=== PATIENT | female | born 1980 | race Caucasian/White ===

== ENCOUNTER 2016-09-13 09:05 | Inpatient (IN) | payer MEDICARE, MEDICAID ==
[~2016-09-13] VITALS: Ht 154.9 cm; Wt 52.8 kg
[2016-09-13] VITALS (15 sets, daily range): BP systolic 98–141; RESP 15–20; TEMP 96.6–97.8; Ht 154.9 cm; Wt 52.8 kg
[2016-09-13] MEDS ORDERED: SODIUM CHLORIDE 0.9% 1,000 ML ONE ×3 (09:30→13:18)
[2016-09-13] MEDS ORDERED: humuLIN REG INSULIN ONE (09:30)
[2016-09-13] MEDS ORDERED: ONDANSETRON 4 MG VIAL ONE (09:48)
[2016-09-13] MEDS ORDERED: DEXTROSE 50% SYRINGE 50 ML IV PRN ×2 (11:00→12:15)
[2016-09-13] MEDS ORDERED: INSULIN DRIP 1 UNIT/ML 100 ML IV SCH ×2 (11:00→12:15)
[2016-09-13] MEDS ORDERED: DIAZEPAM 5 MG TAB PO PRN (12:15)
[2016-09-13] MEDS ORDERED: SODIUM CHLORIDE 0.45% 1,000 ML IV SCH (12:15)
[2016-09-13] MEDS ORDERED: SOD BICARB 8.4% SYR 50 ML IV PRN (12:15)
[2016-09-13] MEDS ORDERED: ONDANSETRON 4 MG VIAL IV PUSH PRN (13:50)
[2016-09-13] MEDS ORDERED: METOCLOPRAMIDE 10 MG/2 ML VIAL IV PUSH PRN (13:50)
[2016-09-13] MEDS ORDERED: SOD BICARB 8.4% SYR 50 ML IV ONE (13:55)
[2016-09-13] MEDS: FAMOTIDINE 20 MG TAB PO SCH ×2 (15:43→23:00)
[2016-09-13] MEDS: DEXTROSE 5% SALINE 0.45% 1,000 ML IV SCH ×2 (15:50→23:46)
[2016-09-13] MEDS: MUPIROCIN 2% CR 15 GM TOPICAL SCH (23:00)
[2016-09-14] VITALS (19 sets, daily range): BP systolic 102–158; RESP 12–21; TEMP 96.8–98.2
[2016-09-14] MEDS: DEXTROSE 5% SALINE 0.45% 1,000 ML IV SCH (06:47)
[2016-09-14] MEDS ORDERED: POTASSIUM CHLORIDE PREMIX 10 MEQ in PART FILL PIGGYBACK 1 EA IV SCH (07:15)
[2016-09-14] MEDS ORDERED: D5-1/2-NS W/KCL 20MEQ/L 1,000 ML IV SCH (07:15)
[2016-09-14] MEDS ORDERED: KCL CR 10 MEQ TAB PO ONE (08:00)
[2016-09-14] MEDS ORDERED: DEXTROSE 50% SYRINGE 50 ML IV PRN (08:35)
[2016-09-14] MEDS ORDERED: GLUCAGON 1 MG VIAL IM PRN (08:35)
[2016-09-14] MEDS: FAMOTIDINE 20 MG TAB PO SCH ×2 (08:42→21:29)
[2016-09-14] MEDS: ENOXAPARIN 30 MG/0.3 ML SYR SUBQ SCH (08:43)
[2016-09-14] MEDS: MUPIROCIN 2% CR 15 GM TOPICAL SCH ×2 (08:43→21:31)
[2016-09-14] MEDS: LEVEMIR INSULIN SUBQ SCH ×2 (08:47→21:31)
[2016-09-14] MEDS: SODIUM CHLOR 0.45% W/KCL 20MEQ 1,000 ML IV SCH ×2 (10:22→19:46)
[2016-09-14] MEDS ORDERED: MISSING DOSE XX ONE (15:35)
[2016-09-14] MEDS: KCL CR 10 MEQ TAB PO SCH ×2 (16:47→21:29)
[2016-09-15 00:38] VITALS: BP_SYST 138; RESP 18; TEMP 97.9
[2016-09-15 03:19] VITALS: BP_SYST 140; RESP 18; TEMP 97.1
[2016-09-15] MEDS: SODIUM CHLOR 0.45% W/KCL 20MEQ 1,000 ML IV SCH (05:33)
[2016-09-15] MEDS: KCL CR 10 MEQ TAB PO SCH ×2 (08:02→16:01)
[2016-09-15] MEDS: FAMOTIDINE 20 MG TAB PO SCH (08:02)
[2016-09-15] MEDS: LEVEMIR INSULIN SUBQ SCH (08:02)
[2016-09-15] MEDS: ENOXAPARIN 30 MG/0.3 ML SYR SUBQ SCH (08:04)
[2016-09-15] MEDS: MUPIROCIN 2% CR 15 GM TOPICAL SCH (08:05)
[2016-09-15 08:12] VITALS: BP_SYST 140; RESP 18; TEMP 98.6
[2016-09-15 11:54] VITALS: BP_SYST 112; RESP 18; TEMP 97.7
[2016-09-15] MEDS ORDERED: CALC CARB 500 MG CHEWTAB PO PRN (13:10)
[2016-09-15 14:29] VITALS: BP_SYST 112; RESP 18; TEMP 97.7
== END 2016-09-15 16:41 | disposition home or self-care (01) | DRG 638 ==
LOC: ENRESERVDT → ENRESERVTM → ER 10:00 → EMR 12:12 → CCU 14:25 → 3NT 09-14 15:31
PROVIDERS: ADMIT Internal Medicine; ATTEND Internal Medicine
DX: E10.10 Type 1 diabetes mellitus with ketoacidosis without coma (principal); L03.311 Cellulitis of abdominal wall; N17.9 Acute kidney failure, unspecified; E87.5 Hyperkalemia; Z91.19 Patient's noncompliance with other medical treatment and regimen; F41.9 Anxiety disorder, unspecified; F79 Unspecified intellectual disabilities
CPT/HCPCS: 36415; 36600; 71010; 80048; 80053; 81001; 82009; 82803; 82947; 83036; 83605; 83690; 83735; 84100; 84703; 85025; 87040; 96361; 96365; 96372; 96375; 99233; 99239